=== PATIENT | female | born 1985 | race Two or more races ===

== ENCOUNTER → 2017-03-11 | Outpatient (CLI) | payer MEDICAID, OTHER ==
--- NOTE | 2017-03-11 11:43 | RADRPT ---
PROCEDURE: XR Left Hip and pelvis. CLINICAL INDICATION: Left hip pain. Pelvic pain. TECHNIQUE: Two views. Frontal pelvis and lateral left hip. COMPARISON: No prior studies are available for comparison. FINDINGS: There is no fracture or dislocation. The soft tissues are normal. Articular surfaces are intact. There is no lytic or blastic lesion. The upper pelvis is not included on the images. IMPRESSION: 1. Unremarkable images of the left hip and pelvis. RPTAT: QQ .Martín Garrett MD, MD Date Time Electronically viewed and signed by .Martín Garrett MD, MD on 03/11/2017 11:43 .R/
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
== END | disposition home or self-care (01) ==
LOC: HKI 11:18
DX: M54.16 Radiculopathy, lumbar region (principal); M54.42 Lumbago with sciatica, left side; M16.12 Unilateral primary osteoarthritis, left hip; I10 Essential (primary) hypertension; E78.00 Pure hypercholesterolemia, unspecified; E66.01 Morbid (severe) obesity due to excess calories; G47.00 Insomnia, unspecified; F41.0 Panic disorder [episodic paroxysmal anxiety]; F32.9 Major depressive disorder, single episode, unspecified; Z72.0 Tobacco use
CPT/HCPCS: 73502; Z7500; G0463

== ENCOUNTER 2017-04-11 07:57 | Inpatient (IN) | END 2017-04-13 17:40 | disposition home or self-care (01) | DRG 443 ==